=== PATIENT | female | born 1965 | race Caucasian/White ===

== ENCOUNTER 2022-02-18 07:42 | Day surgery (SDC) | payer MEDICAID ==
[~2022-02-18] VITALS: Ht 175.3 cm; Wt 121.0 kg
[~2022-02-18 07:42] MED LIST: AMIT100T61 PO; BUSP10TA11 PO; CYCL-357 PO; DOCU250C96 PO; FLUO20CA39 PO; GABA-532 PO; HYDR-4353 PO; LEVO112T25 PO; LISI2.5T49 PO; MAGN296S70 PO; OMEP20CA15 PO; PRAV40TA3 PO
[2022-02-18 08:00] VITALS: BP 113/89
[2022-02-18] MEDS ORDERED: ALEN70TA19 PO (08:07)
[2022-02-18] MEDS ORDERED: CELE-85 PO (08:07)
[2022-02-18] MEDS ORDERED: HYDR-3686 PO (08:08)
[2022-02-18] MEDS ORDERED: FAMO20TA8 PO (08:09)
[2022-02-18] MEDS ORDERED: DULO60CA59 PO (08:09)
[2022-02-18] MEDS ORDERED: MIDAZolam 1 MG/ML 5ML VIAL ONE (08:10)
[2022-02-18] MEDS ORDERED: LIDOcaine Viscous 15ml cup ONE (08:10)
[2022-02-18] MEDS ORDERED: fentaNYL/PF 50MCG/1 ML 2ML syringe ONE (08:10)
[2022-02-18 10:30] VITALS: BP 123/77
[2022-02-18 10:33] VITALS: BP 114/68
[2022-02-18 10:43] VITALS: BP 127/55
[2022-02-18 10:53] VITALS: BP 127/72
== END 2022-02-18 11:02 | disposition home or self-care (01) ==
LOC: GI LAB 07:42
PROVIDERS: ATTEND Internal Medicine Gastroenterology
DX: I85.00 Esophageal varices without bleeding (principal); K44.9 Diaphragmatic hernia without obstruction or gangrene; K74.60 Unspecified cirrhosis of liver; K29.70 Gastritis, unspecified, without bleeding; Z79.899 Other long term (current) drug therapy; K29.50 Unspecified chronic gastritis without bleeding
CPT/HCPCS: 43239; 99152; J2250; J3010; J7030; Z7512; A4620